=== PATIENT | female | born 1975 | race Caucasian/White ===

== ENCOUNTER 2018-03-01 22:49 | Emergency (ER) | payer BC ==
[2018-03-01] MEDS ORDERED: diPHENhydraMINE PO* 25 MG PO ONE (23:48)
[2018-03-01] MEDS ORDERED: predniSONE TAB* 20 MG PO ONE (23:48)
[2018-03-01] MEDS ORDERED: Famotidine TAB* 20 MG PO ONE (23:49)
--- NOTE | 2018-03-01 23:59 | ED ---
Skin Complaint - HPI Summary HPI Summary: Complains of itching 5 days with red skin rash starting today and spreading from chest to back to arms to legs to face. Rash is pruritic, but nonpainful. Denies oral swelling, SOB, fever, cough, sore throat, N/V/D, abdominal pain, CP , SOB. Patient states she had her first CT with contrast 7 days ago. No history of allergic reactions. Has taken Benadryl 25mg x 8 today with no relief , rash becoming progressively worse. - History of Current Complaint Chief Complaint: EDRashSkinAbscess Time Seen by Provider: 03/01/18 23:19 Stated Complaint: HIVES Hx Obtained From: Patient Pain Intensity: 0 - Allergy/Home Medications Allergies/Adverse Reactions: Allergies Allergy/AdvReac Type Severity Reaction Status Date / Time No Known Allergies Allergy Verified 01/05/18 10:06 Home Medications: Home Medications Biotin 1,000 mcg PO DAILY 03/02/18 [History Confirmed 03/02/18] Lansoprazole CAP (NF) [Prevacid CAP (NF)] 30 mg PO DAILY 03/02/18 [History Confirmed 03/02/18] raNITIdine HCl [Ranitidine HCl] 150 mg PO BEDTIME 03/02/18 [History Confirmed ] PMH/Surg Hx/FS Hx/Imm Hx Endocrine/Hematology History: Denies: Hx Diabetes Cardiovascular History: Denies: Hx Hypertension, Hx Pacemaker/ICD History: Denies: Hx Renal Disease Sensory History: Denies: Hx Hearing Aid Psychiatric History: Denies: Hx Panic Disorder - Cancer History Hx Chemotherapy: No Hx Radiation Therapy: No - Surgical History Surgery Procedure, Year, and Place: ENDOSCOPY. HISTOSCOPY. WISDOM TEETH Infectious Disease History: No Infectious Disease History: Denies: Traveled Outside the [place] in Last 30 Days - Social History Alcohol Use: Occasionally Substance Use Type: Reports: None Smoking Status (MU): Never Smoked Tobacco Review of Systems Constitutional: Negative Eyes: Negative ENT: Negative Cardiovascular: Negative Respiratory: Negative Gastrointestinal: Negative Genitourinary: Negative Musculoskeletal: Negative Positive: Rash Neurological: Negative Psychological: Normal All Other Systems Reviewed And Are Negative: Yes Physical Exam - Summary Physical Exam Summary: . Maculopapular rash to back, chest, arms, legs, neck and face. No edema or swelling. No facial swelling. Rash is blanchable Triage Information Reviewed: Yes Vital Signs On Initial Exam: Initial Vitals Temp Pulse Resp BP Pulse Ox 98.1 F 92 16 157/110 99 03/01/18 22:52 03/01/18 22:52 03/01/18 22:52 03/01/18 22:52 03/01/18 22:52 Vital Signs Reviewed: Yes Appearance: Positive: Well-Appearing Head/Face: Positive: Normal Head/Face Inspection Eyes: Positive: Normal ENT: Positive: Normal ENT inspection Neck: Positive: Supple Respiratory/Lung Sounds: Positive: Clear to Auscultation Cardiovascular: Positive: Normal Abdomen Description: Positive: Nontender Musculoskeletal: Positive: Normal Neurological: Positive: Normal Psychiatric: Positive: Normal AVPU Assessment: Alert - [place] Coma Scale Best Eye Response: 4 - Spontaneous Best Motor Response: 6 - Obeys Commands Best Verbal Response: 5 - Oriented Coma Scale Total: 15 Diagnostics - Vital Signs Vital Signs Temp Pulse Resp BP Pulse Ox 03/01/18 22:52 98.1 F 92 16 157/110 99 - Laboratory Lab Statement: Any lab studies that have been ordered have been reviewed, and results considered in the medical decision making process. Re-Evaluation - Re-Evaluation 1 Re-Evaluation Time: 00:53 Comment: Patient's symptoms remain unimproved. Continues to deny SOB, perioral edema. Course/Dx - Course Course Of Treatment: Complains of itching 5 days with red skin rash starting today and spreading from chest to back to arms to legs to face. Rash is pruritic, but nonpainful. Denies oral swelling, SOB, fever, cough, sore throat , N/V/D, abdominal pain, CP, SOB. Patient states she had her first CT with contrast 7 days ago. No history of allergic reactions. Has taken Benadryl 25mg x 8 today with no relief, rash becoming progressively worse. Maculopapular rash to back, chest, arms, legs, neck and face. No edema or swelling. No facial swelling. Rash is blanchable. Rx for prednisone. Patient vital signs normal and stable. Patient agrees to go home and see if prednisone effect symptoms, rather than wait here. - Diagnoses Provider Diagnoses: Rash Discharge - Sign-Out/Discharge Documenting (check all that apply): Discharge/Admit/Transfer - Discharge Plan Condition: Stable Disposition: HOME Patient Education Materials: Acute Rash (ED) Forms: *Work Release Referrals: Isaias Marcial NP [Primary Care Provider] - Additional Instructions: Follow-up with primary care. Return to the ED for any new or worsening symptoms - Billing Disposition and Condition Condition: STABLE Disposition: HOME
[2018-03-02 00:40] VITALS: BP 152/99
== END 2018-03-02 01:15 | disposition home or self-care (01) ==
LOC: ED 22:49
DX: R21 Rash and other nonspecific skin eruption (principal)
CPT/HCPCS: 99282; A9270-GY; J7512

== ENCOUNTER 2018-10-20 03:55 | Emergency (ER) | payer BC ==
--- NOTE | 2018-10-20 04:25 | ED ---
Abdominal Pain/Female - HPI Summary HPI Summary: This patient is a 42 year old F presenting to [facility] with a chief complaint of intermittent stabbing pain to her RLQ since 14:30. The patient rates the pain 3/ 10 in severity. Symptoms aggravated by sitting. Symptoms alleviated by positioning. Patient reports nausea. Patient denies vomiting, back pain, or urinary symptoms. LNMP was 3 weeks ago. Pt takes Ranitidine. - History of Current Complaint Chief Complaint: EDAbdPain Stated Complaint: ABD PAIN Time Seen by Provider: 10/20/18 04:05 Hx Obtained From: Patient Onset/Duration: Sudden Onset, Lasting Hours, Still Present Timing: Intermittent Episode Lasting Severity Initially: Mild Severity Currently: Mild Pain Intensity: 3 Pain Scale Used: 0-10 Numeric Location: Discrete At: RLQ Radiates: No Character: Sharp Aggravating Factor(s): Other: - sitting Alleviating Factor(s): Position Associated Signs and Symptoms: Positive: Nausea. Negative: Back Pain, Urinary Symptoms, Vomiting Allergies/Adverse Reactions: Allergies Allergy/AdvReac Type Severity Reaction Status Date / Time iohexol Allergy Intermediate Rash Verified 07/09/18 14:55 Iodinated Contrast- Oral and Allergy Hives Verified 07/09/18 14:55 IV Dye PMH/Surg Hx/FS Hx/Imm Hx Endocrine/Hematology History: Denies: Hx Diabetes Cardiovascular History: Denies: Hx Hypertension, Hx Pacemaker/ICD History: Denies: Hx Renal Disease Sensory History: Denies: Hx Hearing Aid Psychiatric History: Denies: Hx Panic Disorder - Cancer History Hx Chemotherapy: No Hx Radiation Therapy: No - Surgical History Surgery Procedure, Year, and Place: ENDOSCOPY. HISTOSCOPY. WISDOM TEETH Infectious Disease History: No Infectious Disease History: Denies: Traveled Outside the [place] in Last 30 Days - Family History Known Family History: Negative: Diabetes - Social History Alcohol Use: Occasionally Substance Use Type: Reports: None Smoking Status (MU): Never Smoked Tobacco Review of Systems Negative: Fever Negative: Epistaxis Positive: Abdominal Pain - RLQ, Nausea. Negative: Vomiting Negative: dysuria Musculoskeletal: Other - negative back pain All Other Systems Reviewed And Are Negative: Yes Physical Exam - Summary Physical Exam Summary: VITAL SIGNS: Reviewed. GENERAL: Patient is a morbidly obese FEMALE who is lying comfortable in the stretcher. Patient is not in any acute respiratory distress. HEAD AND FACE: No signs of trauma. No ecchymosis, hematomas or skull depressions. No sinus tenderness. EYES: PERRLA, EOMI x 2, No injected conjunctiva, no nystagmus. EARS: Hearing grossly intact. Ear canals and tympanic membranes are within normal limits. MOUTH: Oropharynx within normal limits. NECK: Supple, trachea is midline, no adenopathy, no JVD, no carotid bruit, no c- spine tenderness, neck with full ROM. CHEST: Symmetric, no tenderness at palpation LUNGS: Clear to auscultation bilaterally. No wheezing or crackles. CVS: Regular rate and rhythm, S1 and S2 present, no murmurs or gallops appreciated. ABDOMEN: Soft, non-tender. No signs of distention. No rebound no guarding, and no masses palpated. Bowel sounds are normal. EXTREMITIES: FROM in all major joints, no edema, no cyanosis or clubbing. NEURO: Alert and oriented x 3. No acute neurological deficits. Speech is normal and follows commands. SKIN: Dry and warm Triage Information Reviewed: Yes Vital Signs On Initial Exam: Initial Vitals Temp Pulse Resp BP Pulse Ox 98.3 F 94 20 159/85 97 10/20/18 03:58 10/20/18 03:58 10/20/18 03:58 10/20/18 03:58 10/20/18 03:58 Vital Signs Reviewed: Yes Diagnostics - Vital Signs Vital Signs Temp Pulse Resp BP Pulse Ox 10/20/18 03:58 98.3 F 94 20 159/85 97 - Laboratory Result Diagrams: 10/20/18 04:27 10/20/18 04:27 Lab Statement: Any lab studies that have been ordered have been reviewed, and results considered in the medical decision making process. - CT CT Abd/Pelvis CT Interpretation Completed By: Radiologist - Dr. Madison has reviewed this report Summary of CT Findings: no acute findings Abdominal Pain Fem Course/Dx - Course Course Of Treatment: This patient is a 42 year old F presenting to [facility] with a chief complaint of intermittent stabbing pain to her RLQ since 14:30. The patient rates the pain 3/10 in severity. Symptoms aggravated by sitting. Symptoms alleviated by positioning. Patient reports nausea. Patient denies vomiting, back pain, or urinary symptoms. LNMP was 3 weeks ago. Pt takes Ranitidine. CT Abd/Pelvis reveals, per radiologist, no acute findings. ED physician has reviewed this radiology report. Patient will be discharged with follow up from PCP. The patient is agreeable with this plan. Dx UTI - Diagnoses Provider Diagnoses: UTI (urinary tract infection) Discharge - Sign-Out/Discharge Documenting (check all that apply): Patient Departure - discharge - Discharge Plan Condition: Stable Disposition: HOME Prescriptions: Ibuprofen TAB* [Motrin TAB* 800 MG] 800 mg PO Q6H PRN #30 tab PRN Reason: Pain Levofloxacin TAB* [Levaquin TAB*] 500 mg PO DAILY #7 tab Patient Education Materials: Urinary Tract Infection in Women (ED) Referrals: Isaias Marcial [employer] [Primary Care Provider] - Additional Instructions: Follow up with primary care physician in 1-2 days. Return to the emergency department with any new or worsening symptoms. - Attestation Statements Document Initiated by Rosendaibe: Yes Documenting Scribe: Eneida Tapia Provider For Whom Scribe is Documenting (Include Credential): Adrianna Madison MD Scribe Attestation: Eneida Muhammad scribed for Adrianna Madison MD on 10/20/18 at 0643. Status of Scribe Document: Ready
[2018-10-20 04:34] LABS: Hematocrit 34 % (35-47); Hemoglobin 10.8 g/dl (12.0-16.0); Mean Corpuscular HGB Conc 32 g/dl (31-36); Mean Corpuscular Hemoglobin 23 pg (27-31); Mean Corpuscular Volume 70 fL (80-97); Mean Platelet Volume 7.9 fL (7.4-10.4); Platelet Count 434 10^3/ul (150-450); Red Blood Count 4.81 10^6/ul (4.00-5.40); Red Cell Distribution Width 17 % (10.5-15); White Blood Count 8.9 10^3/ul (3.5-10.8)
[2018-10-20 04:42] LABS: Activated Partial Thrombo Time 31.4 seconds (26.0-36.3); INR 0.86 (0.77-1.02)
[2018-10-20 04:46] LABS: Urine Appearance Cloudy; Urine Bacteria 1+ (Absent); Urine Bilirubin Negative (Negative); Urine Blood Negative (Negative); Urine Color Yellow; Urine Glucose Negative (Negative); Urine Ketones Negative (Negative); Urine Nitrite Negative (Negative); Urine Protein Negative (Negative); Urine Red Blood Cell Trace(0-2/hpf) (Absent); Urine Specific Gravity 1.024 (1.010-1.030); Urine Urobilinogen Negative (Negative); Urine White Blood Cell 1+(6-10/hpf) (Absent)
[2018-10-20 04:50] LABS: ALT 18 U/L (7-52); AST 16 U/L (13-39); Albumin 4.1 g/dL (3.2-5.2); Albumin/Globulin Ratio 1.4 (1-3); Alkaline Phosphatase 64 U/L (34-104); Anion Gap 5 mmol/L (2-11); BUN/Creatinine Ratio 18.4 (8-20); Blood Urea Nitrogen 14 mg/dL (6-24); C Reactive Protein 14.53 mg/L (<8.01); CO2 Carbon Dioxide 27 mmol/L (22-32); Calcium 9.2 mg/dL (8.6-10.3); Chloride 104 mmol/L (101-111); EGFR Non-African American 83.1 (>60); Glucose 102 mg/dL (70-100); Magnesium 1.9 mg/dL (1.9-2.7); Potassium 3.8 mmol/L (3.5-5.0); Sodium 136 mmol/L (135-145); Total Protein 7.1 g/dL (6.4-8.9)
[2018-10-20 04:55] LABS: ABS Basophils 0 10^3/ul (0-0.2); ABS Eosinophils 0.2 10^3/ul (0-0.6); ABS Monocytes 0.8 10^3/ul (0-0.8); ABS Neutrophils 5.9 10^3/ul (1.5-7.7); ABS Nucleated RBC 0 10^3/ul; Lymphocyte % 22.5 %; Microcytosis 1+; Nucleated Red Blood Cells % 0
[2018-10-20 04:57] LABS: HCG Pregnancy < 0.60 mIU/mL
[2018-10-20] MEDS ORDERED: Levofloxacin TAB* 500 MG PO ONE (06:35)
[2018-10-20 06:50] VITALS: BP 136/74
== END 2018-10-20 06:50 | disposition home or self-care (01) ==
LOC: ED 03:55
DX: N39.0 Urinary tract infection, site not specified (principal); R11.0 Nausea; R10.31 Right lower quadrant pain
CPT/HCPCS: 36415; 74176; 80053; 81003; 81015; 83735; 84702; 85025; 85610; 85730; 86140; 87086; 99282

== ENCOUNTER 2021-04-15 11:10 | Observation (INO) ==
[~2021-04-15 11:10] MED LIST: Naloxone 0.4 mg VIAL 0.4 mg/ml 1 ml VIAL IV PUSH PRN
[2021-04-15 11:57] LABS: ABS Lymphocytes 0.9 10^3/ul (1.0-4.8); ABS Monocytes 0.2 10^3/ul (0-0.8); Hematocrit 45 % (35-47); Hemoglobin 14.2 g/dL (12.0-16.0); Lymphocyte % 7.2 %; Mean Corpuscular HGB Conc 32 g/dL (31-36); Mean Corpuscular Hemoglobin 26 pg (27-31); Mean Corpuscular Volume 83 fL (80-97); Mean Platelet Volume 8.4 fL (7.4-10.4); Platelet Count 416 10^3/uL (150-450); Red Blood Count 5.43 10^6 /uL (3.70-4.87); Red Cell Distribution Width 15 % (10-15); White Blood Count 12.1 10^3/uL (3.5-10.8)
[2021-04-15 12:10] LABS: Activated Partial Thrombo Time 30.1 seconds (26.0-38.0); INR 1.03 (0.86-1.15)
[2021-04-15] MEDS ORDERED: Nitro 2% OINT (Nitroglycerin) 1 INCH/PAK ONE (12:12)
[2021-04-15] MEDS ORDERED: oxyCODONE SR 10 mg TAB ONE (12:12)
[2021-04-15] MEDS ORDERED: Ondansetron 4 mg VIAL 2 MG/ML 2 ml VIAL ONE (12:12)
[2021-04-15 12:21] LABS: Calcium 9.6 mg/dL (8.6-10.3); EGFR African American 107.2 (>60); EGFR Non-African American 88.6 (>60); Potassium 3.6 mmol/L (3.5-5.0)
[2021-04-15 12:23] LABS: HCG Pregnancy 0.6 mIU/mL
[2021-04-15] MEDS ORDERED: Heparin 1,000 UNIT/ML 10 ml (10,000 UNITS) CATHLAB/DIALYSIS ONE (12:50)
[2021-04-15] MEDS ORDERED: fentaNYL 250 mcg/5 ml 50 MCG/ML 5 ml VIAL (250 MCG) ONE (12:50)
[2021-04-15] MEDS ORDERED: Midazolam 5 mg/5 ml VIAL 1 mg/ml 5 ml VIAL (5 mg) ONE (12:50)
[2021-04-15] MEDS ORDERED: VERAPAMIL 2.5 MG/ML 2 ML VIAL ** 5 mg/2 ml ONE (12:50)
[2021-04-15] MEDS ORDERED: nitroGLYCERIN DRIP 25,000 MCG/250 ML BTL ONE (12:51)
[2021-04-15] MEDS ORDERED: Iodixanol 320 (CONTRAST) 100 ML SDV ONE (12:52)
[2021-04-15] MEDS ORDERED: Heparin 2 UNITS/ML IVPREMIX 2,000 UNIT/1,000 ML BAG IV ONE (12:52)
[2021-04-15] MEDS ORDERED: Lidocaine 1% VIAL 10 MG/ML VIAL ONE (12:52)
[2021-04-15] MEDS ORDERED: HYDROmorphone PCA 20 MG/20 ML PCA.SYRING PCA SCH (13:00)
[2021-04-15] MEDS ORDERED: Atropine 0.1 MG/ML 10 ml SYR (1 mg) ONE (14:42)
[2021-04-15] MEDS ORDERED: HYDROmorphone 1 MG/1 ML SYRINGE ONE (14:49)
[2021-04-15] MEDS ORDERED: NS 0.9% 1000 ml BAG 1,000 ML IV SCH (18:00)
[2021-04-15] MEDS: Ondansetron 4 mg VIAL 2 MG/ML 2 ml VIAL IV SCH (20:44)
[2021-04-16] MEDS: Ondansetron 4 mg VIAL 2 MG/ML 2 ml VIAL IV SCH ×2 (02:01→08:03)
[2021-04-16] MEDS ORDERED: HYDROcodone/ACETAMIN 5/325 mg TAB PO PRN (08:27)
[2021-04-16] MEDS ORDERED: Ondansetron ODT 4 mg TAB 4 MG TAB PO SCH (09:00)
[2021-04-16] MEDS ORDERED: Ketorolac 10 mg TAB (NF) PO SCH (09:00)
[2021-04-16] MEDS ORDERED: Clindamycin 900 MG/50 **NS BAG 900 MG/50 ML BAG IV ONE (11:00)
[2021-04-16 11:06] VITALS: BP 110/56
== END 2021-04-16 12:40 | disposition home or self-care (01) ==
LOC: SSU 11:10 → CHICATH 11:10
PROVIDERS: ADMIT Hospitalist; ATTEND Hospitalist
PROC: ANG.UFE (2021-04-15 12:10)

== ENCOUNTER 2023-08-22 11:50 | Observation (INO) ==
[~2023-08-22 11:50] MED LIST changes: +Buffered Lidocaine 1% SYRIN 1 ml INTRADERM ONE; +HYDROmorphone 1 MG/1 ML SYRINGE IV PRN; +Naloxone 0.4 mg VIAL 0.4 mg/ml 1 ml VIAL IV PRN; -Naloxone 0.4 mg VIAL 0.4 mg/ml 1 ml VIAL IV PUSH PRN; +Ondansetron 4 mg VIAL 2 MG/ML 2 ml VIAL IV PRN; +fentaNYL 100 mcg/2 ml 50 MCG/ML VIAL IV PRN
[2023-08-22] MEDS ORDERED: Lactated Ringers 1000 ml BAG 1,000 ML IV SCH (12:00)
[2023-08-22] MEDS ORDERED: Tranexamic Acid 1 GM/100ML BAG 2,000 MG/200 ML BAG IV ONE (12:31)
[2023-08-22] MEDS ORDERED: Lidocaine 2% PF 5 ML VIAL ONE (12:56)
[2023-08-22 13:35] LABS: Rapid COVID-19 Molecular Undetected (Undetected)
[2023-08-22] MEDS ORDERED: ROPIVACAINE 5 MG/ML 30 ML BTL (0.5%) ONE ×2 (13:55→14:00)
[2023-08-22] MEDS ORDERED: Lidocaine 1% MPF 5 ML VIAL ONE (13:55)
[2023-08-22] MEDS ORDERED: Dexamethasone IV 4 MG/ML VIAL 1 ml VIAL ONE ×2 (13:59→16:18)
[2023-08-22] MEDS ORDERED: Propofol 10 mg/ml 100 ML BTL 2,000 MG/200 ML BTL ONE (14:30)
[2023-08-22] MEDS ORDERED: Phenylephrine IV 10 MG/ML 1 ml VIAL ONE (14:33)
[2023-08-22] MEDS ORDERED: fentaNYL 100 mcg/2 ml 50 MCG/ML VIAL ONE (14:39)
[2023-08-22] MEDS ORDERED: Midazolam 2 mg/2 ml VIAL 1 mg/ml 2 ml VIAL (2 mg) ONE (14:39)
[2023-08-22] MEDS ORDERED: Morphine 2 MG/ML SYRINGE IV PRN (15:13)
[2023-08-22] MEDS ORDERED: Lactulose 30 ml UDC PO PRN (15:13)
[2023-08-22] MEDS ORDERED: Magnesium Hydroxide LIQ 30 ML UDC PO PRN (15:13)
[2023-08-22] MEDS ORDERED: Ondansetron ODT 4 mg TAB 4 MG TAB PO PRN (15:13)
[2023-08-22] MEDS ORDERED: Ondansetron 4 mg VIAL 2 MG/ML 2 ml VIAL IV PRN (15:13)
[2023-08-22] MEDS ORDERED: Bupivacaine 0.5% PF 10 ML SDV VIAL INJ ONE (16:05)
[2023-08-22] MEDS ORDERED: Ondansetron 4 mg VIAL 2 MG/ML 2 ml VIAL ONE (16:18)
[2023-08-22] MEDS: Lactated Ringers 1000 ml BAG 1,000 ML IV SCH (20:25)
[2023-08-22] MEDS ORDERED: Venlafaxine 25 mg TAB (NF) PO SCH (21:00)
[2023-08-22] MEDS: Magnesium Hydroxide LIQ 30 ML UDC PO SCH (22:35)
[2023-08-23] MEDS: ceFAZolin 1 GM ADVAN 1 GM in NS 0.9% 50 ML 50 ML IVPB SCH ×3 (01:10→15:22)
[2023-08-23] MEDS: Lactated Ringers 1000 ml BAG 1,000 ML IV SCH (06:48)
[2023-08-23] MEDS: Magnesium Hydroxide LIQ 30 ML UDC PO SCH (07:47)
[2023-08-23] MEDS ORDERED: Vitamin THERAPEUTIC TAB PO SCH (09:00)
[2023-08-23 11:00] LABS: Hematocrit 35.9 % (35-45); Hemoglobin 11.7 g/dL (11.5-14.3); Mean Platelet Volume 8.3 fL (7.5-11.2); Platelet Count 309 10^3/uL (150-450)
[2023-08-23 11:32] LABS: Calcium 8.7 mg/dL (8.6-10.3); Creatinine, Serum 0.74 mg/dL (0.51-0.95); Potassium 4.1 mmol/L (3.5-5.0); eGFR CKD-EPI 99.7 (>60)
[2023-08-23 16:53] VITALS: BP 118/67
== END 2023-08-23 16:40 | disposition home or self-care (01) | DRG 302 ==
LOC: AA 11:50 → INTOOBSV 11:50 → SSU 19:50
PROVIDERS: ADMIT Orthopaedic Surgery Adult Reconstructive Orthopaedic Surgery; ATTEND Orthopaedic Surgery Adult Reconstructive Orthopaedic Surgery

== ENCOUNTER 2024-01-09 05:46 | Inpatient (IN) ==
[~2024-01-09 05:46] MED LIST changes: -Buffered Lidocaine 1% SYRIN 1 ml INTRADERM ONE; -HYDROmorphone 1 MG/1 ML SYRINGE IV PRN; +NS 0.45% 1000 ml BAG 1,000 ML IV SCH
[2024-01-09] MEDS ORDERED: ceFAZolin 2 GM PREMIX 2 GM/50 ML BAG ONE (06:02)
[2024-01-09] MEDS ORDERED: Tranexamic Acid 1 GM/100ML BAG 2,000 MG/200 ML BAG IV ONE (06:02)
[2024-01-09] MEDS ORDERED: Scopolamine 1 mg/72hr PATCH ONE (06:16)
[2024-01-09] MEDS: Scopolamine 1 mg/72hr PATCH TRANSDERM ONE (06:18)
[2024-01-09 06:27] LABS: Rapid COVID-19 Molecular Undetected (Undetected)
[2024-01-09] MEDS ORDERED: ROPIVACAINE 5 MG/ML 30 ML BTL (0.5%) ONE ×2 (06:49→07:18)
[2024-01-09] MEDS ORDERED: fentaNYL 100 mcg/2 ml 50 MCG/ML VIAL ONE ×2 (06:58→07:18)
[2024-01-09] MEDS ORDERED: Midazolam 2 mg/2 ml VIAL 1 mg/ml 2 ml VIAL (2 mg) ONE ×2 (07:00→07:18)
[2024-01-09] MEDS ORDERED: Propofol 10 MG/ML 20 ML BTL ONE (07:02)
[2024-01-09] MEDS ORDERED: Propofol 10 mg/ml 100 ML BTL 1,000 MG/100 ML BTL ONE (07:05)
[2024-01-09] MEDS ORDERED: ceFAZolin 1 GM in Dextrose 1 GM/50 ML BAG ONE (07:29)
[2024-01-09] MEDS ORDERED: Bupivacaine-MPF SPINAL 7.5 MG/ML - 2ML AMP ONE (07:45)
[2024-01-09] MEDS ORDERED: Lidocaine 2% PF 5 ML VIAL ONE (08:12)
[2024-01-09] MEDS ORDERED: Phenylephrine IV 10 MG/ML 1 ml VIAL ONE (08:27)
[2024-01-09] MEDS ORDERED: Ondansetron ODT 4 mg TAB 4 MG TAB PO PRN (08:34)
[2024-01-09] MEDS ORDERED: Lactulose 30 ml UDC PO PRN (08:34)
[2024-01-09] MEDS ORDERED: Magnesium Hydroxide LIQ 30 ML UDC PO PRN (08:34)
[2024-01-09] MEDS ORDERED: Ondansetron 4 mg VIAL 2 MG/ML 2 ml VIAL IV PRN (08:34)
[2024-01-09] MEDS: Lactated Ringers 1000 ml BAG 1,000 ML IV SCH ×2 (12:13→12:14)
[2024-01-09] MEDS: Acetaminophen IV 1 GM/100ML 1,000 MG/100 ML BAG IV ONE (12:39)
[2024-01-09] MEDS: Buffered Lidocaine 1% SYRIN 1 ml INTRADERM ONE (12:39)
[2024-01-09] MEDS: ceFAZolin 1 GM ADVAN 1 GM in NS 0.9% 50 ML 50 ML IVPB SCH ×2 (12:40→15:59)
[2024-01-09] MEDS: Vitamin THERAPEUTIC TAB PO SCH (12:41)
[2024-01-09] MEDS: Magnesium Hydroxide LIQ 30 ML UDC PO SCH (12:41)
[2024-01-09] MEDS ORDERED: ERGOCALCIFEROL 1000 UNIT PO SCH (14:45)
[2024-01-09] MEDS ORDERED: BIOTIN 1 MG PO SCH (14:45)
[2024-01-09] MEDS ORDERED: GLUCOS SUL PO SCH (14:45)
[2024-01-09] MEDS ORDERED: [UNRECOGNIZED DRUG - OTHER] PO SCH (14:45)
[2024-01-09] MEDS: Morphine 2 MG/ML SYRINGE IV PRN (16:10)
[2024-01-09] MEDS: VENLAFAXINE 75 MG PO SCH (20:44)
[2024-01-10 05:23] LABS: Hematocrit 31.7 % (35-45); Hemoglobin 10.4 g/dL (11.5-14.3); Mean Platelet Volume 8.2 fL (7.5-11.2); Platelet Count 283 10^3/uL (150-450)
[2024-01-10 05:51] LABS: Calcium 8.4 mg/dL (8.6-10.3); Creatinine, Serum 0.64 mg/dL (0.51-0.95); Potassium 4.3 mmol/L (3.5-5.0); eGFR CKD-EPI 108.3 (>60)
[2024-01-10 10:20] VITALS: BP 120/64
== END 2024-01-10 14:20 | disposition home or self-care (01) | DRG 302 ==
LOC: AA 05:46 → OBSVTOIN 05:46 → INTOOBSV 05:46 → SSU 08:34
PROVIDERS: ADMIT Orthopaedic Surgery Adult Reconstructive Orthopaedic Surgery; ATTEND Orthopaedic Surgery Adult Reconstructive Orthopaedic Surgery